=== PATIENT | female | born 1995 | race Caucasian/White ===

== ENCOUNTER 2021-06-14 19:58 | Emergency (ER) | payer SELFPAY ==
[2021-06-14 22:30] LABS: CORONAVIRUS COVID-19 NAA POSITIVE (NEGATIVE); INFLUENZA A NAA NEGATIVE (NEGATIVE); INFLUENZA B NAA NEGATIVE (NEGATIVE)
== END 2021-06-14 23:48 | disposition home or self-care (01) ==
LOC: MW.ED 19:58
DX: O98.511 Other viral diseases complicating pregnancy, first trimester (principal); U07.1 COVID-19; O23.41 Unspecified infection of urinary tract in pregnancy, first trimester; N39.0 Urinary tract infection, site not specified; Z3A.12 12 weeks gestation of pregnancy
CPT/HCPCS: 0240U; 81001; 87086; 99283

== ENCOUNTER 2022-01-02 16:31 | Inpatient (IN) | payer MEDICAID ==
[2022-01-02] MEDS ORDERED: Tranexamic Acid 1,000 MG in Sodium Chloride 0.9% 100 ML IV PRN (17:01)
[2022-01-02] MEDS ORDERED: Methylergonovine 0.2 MG/1 ML Amp IM PRN (17:01)
[2022-01-02] MEDS ORDERED: Sodium Chloride 0.9% 10 ML Syringe FLUSH PRN (17:01)
[2022-01-02] MEDS ORDERED: Sodium Chloride 0.9% 2.5 ML Syringe FLUSH PRN (17:01)
[2022-01-02] MEDS ORDERED: Butorphanol 1 MG/ML SDV IVPUSH PRN (17:01)
[2022-01-02] MEDS ORDERED: Ondansetron 4 MG/2 ML SDV IVPUSH PRN (17:01)
[2022-01-02] MEDS ORDERED: Terbutaline 1 MG/ML SDV SUBCUT PRN (17:01)
[2022-01-02] MEDS ORDERED: Carboprost Tromethamine 250 MCG/1 ML Amp IM PRN (17:01)
[2022-01-02] MEDS ORDERED: Misoprostol 200 MCG Tab PO PRN (17:01)
[2022-01-02] MEDS ORDERED: Lidocaine 1% 50 ML MDV INJECT PRN (17:01)
[2022-01-02] MEDS ORDERED: Sodium Chloride 0.9% 20 ML SDV IV PRN (17:01)
[2022-01-02] MEDS ORDERED: Misoprostol 25 MCG (1/4 of 100 MCG) Tab VAG PRN (17:01)
[2022-01-02] MEDS ORDERED: Water For Irrigation,Sterile 1,000 ML Container IRR PRN (17:01)
[2022-01-02] MEDS ORDERED: Misoprostol 25 MCG (1/4 of 100 MCG) Tab PO ONE (17:05)
[2022-01-02] MEDS ORDERED: Oxytocin/0.9 % Sodium Chloride 30 UNIT/500 ML BAG IV SCH ×2 (17:15)
[2022-01-02] MEDS: Lactated Ringers 1,000 ML IV SCH (20:28)
[2022-01-02] MEDS: Misoprostol 25 MCG (1/4 of 100 MCG) Tab PO SCH (22:06)
[2022-01-02] MEDS: Misoprostol 25 MCG (1/4 of 100 MCG) Tab VAG PRN (22:07)
[2022-01-03] MEDS: Lactated Ringers 1,000 ML IV SCH ×4 (00:53→17:04)
[2022-01-03] MEDS: Misoprostol 25 MCG (1/4 of 100 MCG) Tab PO SCH ×2 (02:08→07:59)
[2022-01-03] MEDS: Misoprostol 25 MCG (1/4 of 100 MCG) Tab VAG PRN (02:08)
[2022-01-03] MEDS ORDERED: Ropivacaine/PF 400 MG/200 ML PCA ONE (08:57)
[2022-01-03] MEDS ORDERED: ePHEDrine 50 MG/ML SDV IVPUSH PRN (09:19)
[2022-01-03] MEDS ORDERED: Phenylephrine HCl In 0.9% NaCl 1 MG/10 ML Vial IVPUSH SCH (09:30)
[2022-01-03] MEDS ORDERED: Ropivacaine HCl/PF 400 MG in Premix Bag 1 BAG EPIDUR SCH (09:30)
[2022-01-03] MEDS ORDERED: ceFAZolin 1 GM Vial ONE (19:17)
[2022-01-03] MEDS ORDERED: Water For Injection, Sterile 40 ML ONE (19:17)
[2022-01-03] MEDS ORDERED: ceFAZolin 3 GM in Dextrose 5% in Water 100 ML IV ONE ×2 (19:17)
[2022-01-03] MEDS ORDERED: Dexmedetomidine 200 MCG/2 ML SDV ONE (19:19)
[2022-01-03] MEDS ORDERED: Phenylephrine HCl In 0.9% NaCl 1 MG/10 ML Vial ONE (19:19)
[2022-01-03] MEDS ORDERED: Oxytocin 10 Units/1 ML SDV ONE (19:19)
[2022-01-03] MEDS ORDERED: Ondansetron 4 MG/2 ML SDV ONE (19:22)
[2022-01-03] MEDS ORDERED: Sodium Chloride 0.9% 2.5 ML Syringe FLUSH PRN (19:28)
[2022-01-03] MEDS ORDERED: Sodium Chloride 0.9% 10 ML Syringe FLUSH PRN (19:28)
[2022-01-03] MEDS ORDERED: Sodium Chloride 0.9% 20 ML SDV IV PRN (19:28)
[2022-01-03] MEDS ORDERED: ceFAZolin 2 GM in Premix Bag 1 BAG IV ONE (19:28)
[2022-01-03] MEDS ORDERED: ceFAZolin 1 GM in Premix Bag 1 BAG IV ONE (19:28)
[2022-01-03] MEDS ORDERED: Oxytocin/0.9 % Sodium Chloride 30 UNIT/500 ML BAG IV SCH (19:30)
[2022-01-03] MEDS ORDERED: Famotidine 20 MG/2 ML SDV IVPUSH ONE (19:30)
[2022-01-03] MEDS ORDERED: Citric Acid/Sodium Citrate Solution 30 ML Cup PO ONE (19:30)
[2022-01-03] MEDS ORDERED: Lactated Ringers 1,000 ML IV SCH ×2 (19:30→20:45)
[2022-01-03] MEDS ORDERED: Lidocaine 2% with EPINEPHrine 1:200,000 20 ML SDV ONE (19:31)
[2022-01-03] MEDS ORDERED: Morphine PF 10 MG/10 ML SDV ONE (20:23)
[2022-01-03] MEDS ORDERED: Midazolam 1 MG/ML 2 ML SDV ONE (20:23)
[2022-01-03] MEDS ORDERED: Octyl 2-Cyanoacrylate 1 g/1 mL 1 APPLIC PEN ONE (20:35)
[2022-01-03] MEDS ORDERED: Bisacodyl 10 MG Supp RECTAL PRN (20:40)
[2022-01-03] MEDS ORDERED: Misoprostol 200 MCG Tab RECTAL PRN (20:40)
[2022-01-03] MEDS ORDERED: Oxytocin 10 Units/1 ML SDV IM PRN (20:40)
[2022-01-03] MEDS ORDERED: Tranexamic Acid 1,000 MG in Sodium Chloride 0.9% 100 ML IV PRN (20:40)
[2022-01-03] MEDS ORDERED: Ondansetron 4 MG/2 ML SDV IVPUSH PRN ×3 (20:40→21:22)
[2022-01-03] MEDS ORDERED: Acetaminophen/oxyCODONE 325-5 MG Tab PO PRN (20:40)
[2022-01-03] MEDS ORDERED: diphenhydrAMINE 50 MG/ML SDV IVPUSH PRN ×2 (20:40→21:22)
[2022-01-03] MEDS ORDERED: Lanolin 100% Cream 7 GM Tube TOP PRN (20:40)
[2022-01-03] MEDS ORDERED: Ibuprofen 800 MG Tab PO PRN (20:40)
[2022-01-03] MEDS ORDERED: Methylergonovine 0.2 MG/1 ML Amp IM PRN (20:40)
[2022-01-03] MEDS ORDERED: Naloxone 0.4 MG/ML SDV IVPUSH PRN (21:20)
[2022-01-03] MEDS ORDERED: HYDROmorphone 1 MG/ML Syringe IVPUSH PRN (21:20)
[2022-01-03] MEDS ORDERED: Albuterol 0.083% 2.5 MG/3 ML Neb Soln NEB PRN (21:20)
[2022-01-03] MEDS ORDERED: fentaNYL 50 MCG/ML SDV IVPUSH PRN (21:20)
[2022-01-03] MEDS: Ketorolac 30 MG/ML SDV IVPUSH SCH (22:59)
[2022-01-03] MEDS: Docusate Sodium 100 MG Cap PO SCH (23:00)
[2022-01-04] MEDS: Ketorolac 30 MG/ML SDV IVPUSH SCH ×4 (02:41→20:56)
[2022-01-04] MEDS: Docusate Sodium 100 MG Cap PO SCH ×2 (09:24→20:56)
[2022-01-05] MEDS: Acetaminophen/oxyCODONE 325-5 MG Tab PO PRN ×2 (02:38→10:46)
[2022-01-05] MEDS: Docusate Sodium 100 MG Cap PO SCH ×2 (08:32→10:46)
== END 2022-01-05 11:00 | disposition home or self-care (01) | DRG 788 ==
LOC: MW.OBCHECK 16:31 → MW.OB 16:32 → MW.OBCHECK 17:00 → MW.OB 17:01 → OBSVTOIN 01-03 19:28 → MW.OB 01-04 00:12
PROVIDERS: ADMIT Obstetrics & Gynecology; ATTEND Obstetrics & Gynecology
PROC: 10D00Z1 Extraction of Products of Conception, Low, Open Approach (ICD-10-PCS; principal; 2022-01-04)
PROC: 3E0P7VZ Introduction of Hormone into Female Reproductive, Via Natural or Artificial Opening (ICD-10-PCS; 2022-01-04)
PROC: 3E033VJ Introduction of Other Hormone into Peripheral Vein, Percutaneous Approach (ICD-10-PCS; 2022-01-04)
DX: O48.0 Post-term pregnancy (principal); Z3A.41 41 weeks gestation of pregnancy; Z37.0 Single live birth; O62.2 Other uterine inertia; Z20.822 Contact with and (suspected) exposure to COVID-19
CPT/HCPCS: 01967; 01968; 36415; 51702; 59025; 80305-QW; 85014; 85018; 85027; 86592; 86850; 86900; 86901; A9270-GY; J0690; J1885; J2250; J2274; J2405; J2590; J2795; J7120; U0002